=== PATIENT | male | born 1940 | race Two or more races ===

== ENCOUNTER → 2024-03-06 | Outpatient (CLI) | payer MEDICARE, BC, SELFPAY ==
[2024-03-06 09:20] LABS: Glucose Estimated Average 157 mg/dL (80-131); Hemoglobin A1C 7.1 % Hgb (4.8-6.0)
[2024-03-06 09:24] LABS: Prostate Specific Antigen < 0.10 ng/mL (0-4.00)
== END | disposition home or self-care (01) ==
LOC: COPL 08:07
PROVIDERS: PCP Internal Medicine; Referring Provider Internal Medicine; Visit Provider Internal Medicine
DX: E11.9 Type 2 diabetes mellitus without complications (principal); N40.1 Benign prostatic hyperplasia with lower urinary tract symptoms
CPT/HCPCS: 36415; 83036; 84153

== ENCOUNTER 2024-04-21 09:16 | Emergency (ER) | payer MEDICARE, BC, SELFPAY ==
--- NOTE | 2024-04-21 09:20 | EKG_ITS ---
[facility] Test Date: 2024-04-21 Pat Name: MIYA SHAIKH Department: Room: - Gender: Male Special Delivery Carrier: : 1940 Requested By: Aristides Perry (DILMA) Order Number: [id number] Reading MD: Aristides Perry (TECHNICAL SYSTEMS ARCHITECT) Measurements Intervals [place] Rate: 85 P: 50 ND: 181 QRS: 18 QRSD: 93 T: 51 QT: 392 QTc: 468 Interpretive Statements SINUS RHYTHM No previous ECG available for comparison /store/S0/[id number]/ecg/[id number].pdf
--- NOTE | 2024-04-21 09:27 | XR_ITS ---
Examination: PA chest single view TECHNIQUE: Upright PA chest single view Exam date and time: April 21, 2024 0939 hours INDICATIONS: Shortness of breath beginning one week ago. FINDINGS: Bilateral subsegmental atelectasis Normal heart size Port-A-Cath tip satisfactory position No lobar pneumonia IMPRESSION: Bilateral minor subsegmental atelectasis
--- NOTE | 2024-04-21 09:29 | PD.EDRME ---
Rapid Medical Screening Exam RME Arrival date/time: 04/21/24 09:16 83-year-old male presents to the emergency department today with son who reports patient has been having generalized shortness of breath and fatigue Chief Complaint: Shortness of Breath/Dyspnea
[2024-04-21 09:41] VITALS: BP 115/68; PULSE 101; RESP 24; TEMP 36.5; O2SAT 97; BMI 25.2
[2024-04-21 10:21] LABS: Basophils # (Auto) 0.1 Thou/mm3 (0.0-0.2); Basophils % (Auto) 1 % (0-2.5); Eosinophils % (Auto) 0 % (0-10); Hematocrit 38.8 % (41.0-53.0); Immature Granulocytes % (Auto) 1 % (0-0); Immature Granulocytes Auto 0.08 Thou/mm3 (0.00-0.00); Lymphocytes # (Auto) 1.7 Thou/mm3 (1.0-4.8); Lymphocytes % (Auto) 14 % (10-50); Mean Corpuscular HGB Conc 33.5 g/dl (31.0-37.0); Mean Corpuscular Hemoglobin 28.5 pg (25.0-35.0); Mean Corpuscular Volume 85 fL (80-100); Monocytes # (Auto) 1.1 Thou/mm3 (0.0-0.8); Monocytes % (Auto) 9 % (0-12); Neutrophils % (Auto) 75 % (37-80); Nucleated Red Blood Cell % 0 /100 WBC (0); Platelet Count 501 Thou/mm3 (140-440); RDW Standard Deviation 43.2 fL (35.1-43.9); Red Blood Count 4.56 Miln/mm3 (4.50-5.90)
[2024-04-21 10:33] LABS: Partial Thromboplastin Time 30.7 Seconds (22.0-36.0); Prothrombin Time 11.4 Seconds (9.0-12.2)
[2024-04-21 10:37] LABS: B-Type Natriuretic Peptide 179 pg/mL (0-100)
[2024-04-21 10:40] LABS: Alanine Aminotransferase 20 U/L (10-49); Albumin/Globulin Ratio 1.1 (1.2-2.2); Alkaline Phosphatase 80 U/L (46-116); Anion Gap 7 (7-16); Aspartate Amino Transferase 24 U/L (0-34); BUN/Creatinine Ratio 10 Ratio (12-20); Blood Urea Nitrogen 11 mg/dL (9-23); Calcium 9.8 mg/dL (8.3-10.6); Calcium (Corrected) 9.8 mg/dL (8.5-10.1); Carbon Dioxide 28.1 mMol/L (20.0-31.0); Chloride 99 mMol/L (98-107); Creatinine (Component) 1.1 mg/dL (0.6-1.3); Estimated Creatinine Clearance 53.2 mL/min (>60); Globulin 3.5 gm/dL (2.3-3.5); Glucose 177 mg/dL (74-106); Magnesium 1.9 mg/dL (1.6-2.6); Osmolality,Calculated 271 (275-295); Potassium 4.2 mMol/L (3.4-5.1); Sodium 134 mMol/L (136-145); Total Protein 7.5 gm/dL (5.7-8.2); Troponin I < 0.020 ng/mL (0.0-0.045); eGFR > 60 See Note
[2024-04-21 11:48] LABS: Collection Type, Urine Clean Catch
[2024-04-21 12:01] LABS: Bilirubin,Urine Negative (Negative); Blood,Urine Negative (Negative); Clarity,Urine Clear (Clear/Hazy); Color,Urine Yellow (Lt Yel-Yel); Glucose, Urine Negative (Negative); Ketones,Urine Negative (Negative); Specific Gravity,Urine 1.011 (1.001-1.035)
[2024-04-21 12:02] LABS: Leukocyte Esterase,Urine Negative (Negative); Nitrite,Urine Negative (Negative); Protein,Urine Trace (Neg - Trace); RBC,Urine 1 /hpf (0-3); Squamous Epithelial Cell,Urine < 1 /hpf (0-5); Urobilinogen,Urine Negative mg/dL (0.0-1.0); WBC,Urine 1 /hpf (0-5)
[2024-04-21 14:56] VITALS: BP 114/74; PULSE 84; RESP 18; TEMP 36.9; O2SAT 98
--- NOTE | 2024-04-21 15:12 | PD.EDSOB ---
ED SOB =RME/HPI General Chief Complaint: Shortness of Breath/Dyspnea Stated Complaint: SOB, WEAK, CAN'T FOCUS X 1 WK , COLD SHAKES Time Seen by Provider: 04/21/24 18:19 Arrival date/time: 04/21/24 09:16 RME / HPI RME / HPI Narrative: 04/21/24 09:16 83-year-old male presents to the emergency department today with son who reports patient has been having generalized shortness of breath and fatigue DR. ARSHAD MAIN ED EVALUATION: 83 year old male presents to the Emergency Department accompanied by the son with complaint of shortness of breath today. Symptoms are mild to moderate. PMHx: Localized prostate cancer in 2001 status post surgery, hypertension and diabetes. Social Hx: No tobacco, alcohol, or substance use. Related Data Home Medications ?Medication ?Instructions ?Recorded ?Confirmed gabapentin 100 mg capsule 200 mg PO BID 10/31/20 10/31/20 lisinopril 2.5 mg tablet 2.5 mg PO DAILY 10/31/20 10/31/20 metformin 500 mg tablet 500 mg PO DAILY 10/31/20 10/31/20 Previous Rx's ?Medication ?Instructions ?Recorded cefdinir 300 mg capsule 300 mg PO BID #14 caps 04/21/24 Allergies Allergy/AdvReac Type Severity Reaction Status Date / Time No Known Allergies Allergy Unverified 04/21/24 09:18 Review of Systems Review of Systems Systems Reviewed: All systems reviewed, normal except as documented Narrative Review of Systems: GEN: No fever, no chills, no weight loss EYES: No discharge, no visual changes, no pain HEENT: No ear pain, no congestion, no sore throat PULM: + shortness of breath, no cough, no congestion CV: No chest pain, no dyspnea on exertion, no palpitations GI: No nausea, no vomiting, no diarrhea, no pain, no constipation : No frequency, no urgency and no dysuria MUSC/SKEL: No joint pain, no back pain SKIN: No rash PSYCH: No hallucinations, no depression HEME/LYMPH: No easy bleeding or bruising tendencies NEURO: No weakness, no headache Past Medical History Past Medical History NEUROLOGIC: Positive Neurological Disorders and Peripheral Neuropathy; Negative Seizures CARDIAC: Positive Cardiac Disorders and Hypertension; Negative Congestive Heart Failure RESPIRATORY: Negative Chronic Obstructive Pulmonary Disease (COPD) GASTROINTESTINAL: Negative Gastrointestinal Disorders GENITOURINARY: Positive Inguinal Hernia (bilat) and Prostate Cancer; Negative Renal Disease MUSCULOSKELETAL: Positive Musculoskeletal Disorders and Arthritis ENDOCRINE: Positive Endocrine Disorders and Diabetes Mellitus Type 2; Negative Diabetes Mellitus Type 1 HEMATOLOGIC: Negative Blood Disorders OTHER HISTORY: Positive Falls, Cancer and Prostate Cancer; Negative Blood Transfusions, Anesthesia Reactions, Chemotherapy or Radiation Therapy Surgical History SURGICAL: Positive Abdominal Surgery; Negative Cardiac Surgery or Joint Replacement Social History SMOKING STATUS: Never smoker SUBSTANCE USE: does not use ALCOHOL: Never ED Exam Narrative Physical exam: GENERAL APPEARANCE: alert and oriented x 4, well-developed, well-nourished, no acute distress VITALS: All vitals were reviewed and the pulse ox is 98% on room air, which is normal according to my interpretation. HEENT: Normocephalic, atraumatic; pupils equal, round, reactive to light; EOMI; mucous membranes pink, moist; oropharynx clear NECK: Supple LUNGS: CTABL; no wheezes, no rales, no rhonchi HEART: Regular rate, regular rhythm; normal S1, S2; no murmurs ABDOMEN: non distended; normal BS; soft, no tenderness, no guarding, no rebound; no masses, no organomegaly, no hernia BACK: no CVA tenderness EXTREMITIES: atraumatic; no edema NEUROLOGIC: awake; alert and oriented x4; cranial nerves II-XII grossly intact; no focal sensory or motor deficits PSYCHIATRIC: appropriate mood and affect SKIN: warm, dry, normal color; no rashes Course Course Course Narrative: 1800: Patient was signed out to Dr. Anguiano. Past medical, surgical, social and family history reviewed. Vitals and home medications reviewed. Results and treatment plan discussed. They will assume the care of the patient at this time and will follow the patient, pending remainder of labs and final disposition. Quality Measures none Orders Category Date Time Status Bedside COVID-19 Antigen Test NOW Care 04/21/24 15:19 Completed Bedside Influenza A&B Antigen Test NOW Care 04/21/24 09:[address] Screening NOW Care 04/21/24 18:31 Completed EKG (ED ONLY) *Do not use* NOW Care 04/21/24 09:20 Completed IV [Insert IV] NOW Care 04/21/24 19:[address] abdomen pelvis w con Stat Exams 04/21/24 18:[address] angio chest Stat Exams 04/21/24 18:[address] head/brain wo con Stat Exams 04/21/24 18:31 Completed EKG (ED Only) Stat Exams 04/21/24 09:20 Draft XR chest 1V Stat Exams 04/21/24 09:27 Completed B-Type Natriuretic Peptide Stat Lab 04/21/24 10:07 Completed CBC Stat Lab 04/21/24 10:07 Completed Comprehensive Metabolic Panel Stat Lab 04/21/24 10:07 Completed D-Dimer Stat Lab 04/21/24 10:07 Completed Lactic Acid [Lactate (Lactic Acid)] Stat Lab 04/21/24 15:48 Completed Lactic Acid, 3 HR Stat Lab 04/21/24 19:19 Completed Magnesium Stat Lab 04/21/24 10:07 Completed Partial Thromboplastin Time Stat Lab 04/21/24 10:07 Completed Procalcitonin Stat Lab 04/21/24 15:48 Completed Prothrombin Time with INR Stat Lab 04/21/24 10:07 Completed Strep A Rapid Stat Lab 04/21/24 18:28 Completed Troponin I Stat Lab 04/21/24 10:07 Completed Troponin I Stat Lab 04/21/24 15:48 Completed Urinalysis Stat Lab 04/21/24 11:44 Completed Azithromycin Po [Zithromax PO] Med 04/21/24 20:52 Discontinued 500 mg PO X1 ONE Sodium Chloride 0.9% 1000 ml [Ns] 1,000 ml Med 04/21/24 16:26 Discontinued IV 999 mls/hr cefTRIAXone/D5w 1gm IV premix [Rocephin/D5w 1gm IV Med 04/21/24 20:52 Discontinued premix] 50 ml IV X1 Vital Signs Vital signs: Vital Signs Temperature 97.7 F 04/21/24 09:41 Pulse Rate 101 H 04/21/24 09:41 Respiratory Rate 24 H 04/21/24 09:41 Blood Pressure 115/68 04/21/24 09:41 Pulse Oximetry (%) 97 04/21/24 09:41 Oxygen Delivery Method Room Air 04/21/24 09:41 Shortness of Breath / Dyspnea MDM Narrative MDM Narrative:: IPrema am scribing for and in the presence of Dr. Arshad. Patient data External records reviewed:: [facility] previous records (Reviewed EGD note by Dr. Brandt dated 10/31/20) Clinical information provided by:: patient and family (son) Social determinants that could affect healthcare access:: none Patient has the following chronic illnesses:: Localized prostate cancer in 2002 status post surgery, hypertension and diabetes. How is presenting disease/condition affected by chronic disease/condition?: exacerbated by Evaluation data The following diagnostics were reviewed and interpreted by me:: lab results, radiology exam(s) and EKG tracing(s) (EKG#1: EKG at 0934 hours. Interpreted by me: sinus rhythm, rate 85, no acute ischemic changes) Lab and/or radiology exams considered but not ordered:: none Interpretation Summary: Procedure(s): XR chest 1V Accession Number(s): [id number] cc: Orlando (DILMA),Arisitdes SPRINKLER HELPER; Tobias Fernandez MD~ Examination: PA chest single view TECHNIQUE: Upright PA chest single view Exam date and time: April 21, 2024 0939 hours INDICATIONS: Shortness of breath beginning one week ago. FINDINGS: Bilateral subsegmental atelectasis Normal heart size Port-A-Cath tip satisfactory position No lobar pneumonia IMPRESSION: Bilateral minor subsegmental atelectasis Dictated By: Tobias Fernandez MD Medications / Prescriptions Medications or Prescriptions considered but not ordered:: none Medication administrations:: Medication Administration History Discontinued Medications Azithromycin (Azithromycin 250 Mg Tablet) 500 mg PO X1 ONE Stop: 04/21/24 20:53 Last Admin: 04/21/24 20:59 Dose: 500 mg Documented By: CANELO Sodium Chloride (Ns) 1,000 mls @ 999 mls/hr IV .Q1H1M ONE Stop: 04/21/24 17:26 Last Infusion: 04/21/24 18:21 Dose: Infused Documented By: Admin: 04/21/24 17:17 Dose: 999 mls/hr Documented By: DARÍO Ceftriaxone Sodium/Dextrose (Rocephin/D5w 1gm Iv Premix) 50 mls @ 100 mls/hr IV X1 ONE Stop: 04/21/24 21:21 Last Infusion: 04/21/24 21:35 Dose: Infused Documented By: Admin: 04/21/24 20:59 Dose: 100 mls/hr Documented By: CANELO see above if any Consultations Consultation(s) initiated? (list below): No Diagnosis Shortness of Breath Differential Diagnosis: acute exacerbation of chronic obstructive airways disease, congestive heart failure, community acquired pneumonia, asthma with exacerbation and pulmonary embolism Most likely diagnosis given after review of the tests above:: No official diagnoses at this time, still pending diagnostic tests. Patient signout to the second shift supervisor provider. Admission Indicated Admission indicated?: not indicated Explain why admission is indicated or not indicated:: No final disposition plan at this time, still pending diagnostic tests. Patient signout to the second shift supervisor provider. Admission Request Was there a request for admission?: No Disposition Plan Disposition Plan: other (specify) (Patient signout to the second shift supervisor provider. ) Discharge Plan Plan Patient Disposition: HOME (Self Care) Prescriptions/Referrals Prescriptions/Med Rec: New cefdinir 300 mg capsule 300 mg PO BID Qty: 14 0RF No Action metformin 500 mg tablet 500 mg PO DAILY Patient Comments: TAKE 1 TABLET BY MOUTH EVERY DAY gabapentin 100 mg capsule 200 mg PO BID Patient Comments: TAKE 2 CAPSULES BY MOUTH TWICE A DAY lisinopril 2.5 mg tablet 2.5 mg PO DAILY Patient Comments: TAKE 1 TABLET BY MOUTH EVERY DAY Referrals: Anand Haddad MD [Primary Care Provider] - In 1 week Problem List Clinical Impression: Community acquired pneumonia Patient/Caregiver Discharge Instructions Discharge Activity: activity as tolerated Education Materials: ED Pneumonia (Adult) Additional Instructions: Discharge instructions from Dr. Anguiano: 1. After extensive evaluation, there is no life-threatening condition.? Such as stroke or brain tumor or heart attack or pulmonary embolism (blood clots in your lungs) or pneumothorax (collapsed lung). 2. But you have pneumonia. 3. Take Zithromax and cefdinir to kill the germs causing the pneumonia. --No physical exertion for 3 days to help rest the lungs. ?No smoking or exposure to smoking or pets or dust or cold air. --Prednisone to help decrease the swelling in the airways. 4. See a private doctor on 04/24/2024 for recheck and further care. Ask to review all test results and official radiology reports, to make sure you receive all necessary follow-ups and monitoring. To make sure there is no serious underlying heart condition, ask to help you get more tests for your heart that cannot be done here in the ER.? Such as Holter Monitor (cardiac monitoring at home from a day to even a month), heart stress test (on treadmill or with medication), echocardiogram (imaging of your heart structures), heart catherization (checking for blockages in your heart arteries), and a referral to see a Telecommunications Field Technician. 5. Seek immediate medical care with worsening or with any concerns.?? Print Language: [place] Islander Stand Alone Forms: Radha Award Info., Patient Portal Info Letter
[2024-04-21 16:05] LABS: Lactate (Lactic Acid) 2.7 mMol/L (0.4-2.0)
[2024-04-21 16:54] LABS: Procalcitonin 0.08 ng/ml (0.0-0.49); Troponin I < 0.020 ng/mL (0.0-0.045)
[2024-04-21] MEDS: SODIUM CHLORIDE 0.9% 1000 ML 1,000 ML 999 ML IV (17:17)
[2024-04-21 17:22] LABS: D-Dimer 2330 ng/mL (<600)
--- NOTE | 2024-04-21 18:01 | PD.EDADDENDU ---
Emergency Room Addendum <Jory Sullivan - Last Filed: 04/21/24 20:57> Addendum Narrative: I took over the care from Dr. Arshad at 6 PM on 04/21/2024, see her notes for complete H&P and ED course. Please refer to the emergency department record for history and examination from initial visit. I reviewed all diagnostic test results. My interpretation of the EKG is My interpretation of the chest x-ray is My review of the CT report is Blood tests and urine tests At this point, diagnoses include Treatment here included Significant improvement Based on my best medical judgment, made decision no further evaluation or treatment indicated at this time. Patient understands and agrees to the discharge instructions customized and printed, see below. Discharge instructions from Dr. Anguiano: 1. After extensive evaluation, there is no life-threatening condition.? Such as stroke or brain tumor or heart attack or pulmonary embolism (blood clots in your lungs) or pneumothorax (collapsed lung). 2. But you have pneumonia. 3. Take Zithromax and cefdinir to kill the germs causing the pneumonia. --No physical exertion for 3 days to help rest the lungs. ?No smoking or exposure to smoking or pets or dust or cold air. --Prednisone to help decrease the swelling in the airways. 4. See a private doctor on 04/24/2024 for recheck and further care. Ask to review all test results and official radiology reports, to make sure you receive all necessary follow-ups and monitoring. To make sure there is no serious underlying heart condition, ask to help you get more tests for your heart that cannot be done here in the ER.? Such as Holter Monitor (cardiac monitoring at home from a day to even a month), heart stress test (on treadmill or with medication), echocardiogram (imaging of your heart structures), heart catherization (checking for blockages in your heart arteries), and a referral to see a Partridge Farmer. 5. Seek immediate medical care with worsening or with any concerns.?? <Carlos Anguiano MD - Last Filed: 04/21/24 20:57> Addendum Narrative: I took over the care from Dr. Arshad at 6 PM on 04/21/2024, see her notes for complete H&P and ED course. I reviewed all diagnostic test results. Remarkable for pneumonia. At this point, diagnoses include pneumonia. Treatment here included Rocephin and Zithromax. Recommended a trial of outpatient treatment. Based on my best medical judgment, made decision no further evaluation or treatment indicated at this time. Patient understands and agrees to the discharge instructions customized and printed, see below. Discharge instructions from Dr. Anguiano: 1. After extensive evaluation, there is no life-threatening condition.? Such as stroke or brain tumor or heart attack or pulmonary embolism (blood clots in your lungs) or pneumothorax (collapsed lung). 2. But you have pneumonia. 3. Take Zithromax and cefdinir to kill the germs causing the pneumonia. --No physical exertion for 3 days to help rest the lungs. ?No smoking or exposure to smoking or pets or dust or cold air. --Prednisone to help decrease the swelling in the airways. 4. See a private doctor on 04/24/2024 for recheck and further care. Ask to review all test results and official radiology reports, to make sure you receive all necessary follow-ups and monitoring. To make sure there is no serious underlying heart condition, ask to help you get more tests for your heart that cannot be done here in the ER.? Such as Holter Monitor (cardiac monitoring at home from a day to even a month), heart stress test (on treadmill or with medication), echocardiogram (imaging of your heart structures), heart catherization (checking for blockages in your heart arteries), and a referral to see a Partridge Farmer. 5. Seek immediate medical care with worsening or with any concerns.??
--- NOTE | 2024-04-21 18:31 | XR_ITS ---
Examination: CT abdomen with intravenous contrast CT pelvis with intravenous contrast 2-D coronal reconstructions 2-D sagittal reconstructions Date and time of exam:January 19, 2025 at 1933 hrs. Indications: Abdominal pain beginning one week ago Comparison: August 04, 2020. CTDI: vol (mGy) 17.4 DLP: (mGycm) 1054 Technique: Multiple axial sections of the abdomen and pelvis have been obtained. 64 slice high-resolution scanner used. 3 mm axial sections have been obtained, post intravenous injection 100 cc Isovue-370 2-D sagittal, coronal reconstructions obtained. Low dose protocols were performed. One or more of the following dose reduction techniques were used; automated exposure control, adjustment of the mA and/or KV according to patient size, use of iterative reconstruction technique. Findings: 11 mm liver cyst No gallstones Smaller splenic lesion on this study, 27 mm compared to 12 cm Weight 27/09/2020, probably result splenic infarct No pancreatic or adrenal mass Minimal perinephric stranding No hydronephrosis Normal appendix Abdominal aortic calcification no aneurysmal dilatation Urinary bladder wall thickening anteriorly up to 7 mm Prominent osteopenia with advanced degenerative disc disease L2-L3, L3-L4, L4-L5 Impression: Smaller splenic lesion compared to the prior CT exam, probably result splenic infarct Minimal perinephric stranding Normal appendix No bowel obstruction or diverticulitis Irregular urinary bladder wall thickening anteriorly up to 7 mm, differential would include cystitis, early bladder carcinoma not excluded, clinical correlation advised
--- NOTE | 2024-04-21 18:31 | XR_ITS ---
Examination: CT brain head without contrast. 2-D sagittal coronal reconstructions Date and time of exam:November 19, 2024 1930 hrs. Indications: Onset altered mental status today CTDI: vol (mGy):55.7 DLP: (mGycm):1180 Technique: Multiple CT axial sections of the brain have been obtained, 5 mm slice thickness. Contrast has not been administered. 2-D sagittal, coronal reconstructions have been obtained Low dose protocols were performed. One or more of the following dose reduction techniques were used; automated exposure control, adjustment of the mA and/or KV according to patient size, use of iterative reconstruction technique. Findings: No significant ventricular enlargement. Intra-axial or extra-axial hemorrhage density is not seen. No mass effect or midline shift Basal cisterns are not remarkable. Fourth ventricle is midline. Cranial vault intact. Impression: Negative for acute hemorrhage, mass effect or midline shift Clinical correlation advised and follow-up accordingly
--- NOTE | 2024-04-21 18:31 | XR_ITS ---
Examination: CTA chest with intravenous contrast 2-D reconstructions 3-D reconstructions, vascular Date and time of exam: April 21, 2022 1933 hrs. Indications: Shortness of breath chest pain beginning one week ago, with elevated the dimer CTDI: vol (mGy) 53.28 DLP: (mGycm) 1028 Technique: Multiple axial sections of the thorax have been obtained. 3 mm slice thickness, from below the hemidiaphragms to above the apices of the lungs. Mediastinal and lung density settings have been obtained. 2-D sagittal and coronal reconstructions. 3-D angiographic renderings, 3-D volume renderings, 3D post processing, vascular maximum intensity projections obtained. Contrast administered is 100 cc Isovue-370. Low dose protocols were performed. One or more of the following dose reduction techniques were used; automated exposure control, adjustment of the mA and/or KV according to patient size, use of iterative reconstruction technique. 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
[2024-04-21 18:55] VITALS: BP 113/63; PULSE 85; RESP 22; TEMP 36.8; O2SAT 98
[2024-04-21 19:02] LABS: Reflex Lactate? Y
[2024-04-21 19:06] VITALS: BP 136/70; PULSE 72; RESP 18; O2SAT 99
[2024-04-21 19:19] LABS: Strep A Rapid Negative (Negative)
[2024-04-21 19:28] LABS: Lactic Acid, 3 HR 2.2 mMol/L (0.4-2.0)
[2024-04-21] MEDS: cefTRIAXone/D5w 1gm IV premix 50 ML IV (20:59)
[2024-04-21] MEDS: AZITHROMYCIN 250 MG TABLET 500 MG PO (20:59)
[2024-04-21 21:02] VITALS: BP 124/66; PULSE 77; RESP 18; O2SAT 98
== END 2024-04-21 21:37 | disposition home or self-care (01) ==
PROVIDERS: Emergency Medicine; Nurse Practitioner Primary Care; Emergency Provider Emergency Medicine; PCP Internal Medicine
DX: J18.9 Pneumonia, unspecified organism (principal); J98.11 Atelectasis; I10 Essential (primary) hypertension; R41.82 Altered mental status, unspecified; R10.9 Unspecified abdominal pain
CPT/HCPCS: 36415; 70450; 71045; 71275; 74177; 80053; 81001; 83605; 83735; 83880; 84145; 84484; 85025; 85379; 85610; 85730; 87400; 87651; 87811; 93005; 96360; 96365; 99285; A4649; J0696; J7030; Q9967; A9270

== ENCOUNTER 2024-06-09 08:45 | Day surgery (SDC) | payer MEDICARE, BC, SELFPAY ==
[2024-06-08 11:58] VITALS: BMI 26.5
[2024-06-08 12:54] LABS: Basophils # (Auto) 0.1 Thou/mm3 (0.0-0.2); Basophils % (Auto) 1 % (0-2.5); Eosinophils # (Auto) 0.3 Thou/mm3 (0.0-0.5); Eosinophils % (Auto) 3 % (0-10); Hematocrit 42.1 % (41.0-53.0); Hemoglobin 13.7 g/dL (13.5-16.0); Immature Granulocytes % (Auto) 1 % (0-0); Immature Granulocytes Auto 0.07 Thou/mm3 (0.00-0.00); Lymphocytes # (Auto) 3.3 Thou/mm3 (1.0-4.8); Lymphocytes % (Auto) 31 % (10-50); Mean Corpuscular HGB Conc 32.5 g/dl (31.0-37.0); Mean Corpuscular Volume 86 fL (80-100); Monocytes # (Auto) 0.9 Thou/mm3 (0.0-0.8); Monocytes % (Auto) 9 % (0-12); Neutrophils # (Auto) 5.9 Thou/mm3 (1.8-7.7); Neutrophils % (Auto) 56 % (37-80); Nucleated Red Blood Cell % 0 /100 WBC (0); Platelet Count 648 Thou/mm3 (140-440); RDW Standard Deviation 53.9 fL (35.1-43.9); Red Blood Count 4.89 Miln/mm3 (4.50-5.90); White Blood Count 10.6 Thou/mm3 (3.8-10.6)
[2024-06-08 13:05] LABS: Alanine Aminotransferase 16 U/L (10-49); Albumin, Serum 4.4 gm/dL (3.4-4.8); Albumin/Globulin Ratio 1.2 (1.2-2.2); Alkaline Phosphatase 127 U/L (46-116); Anion Gap 11 (7-16); Aspartate Amino Transferase 28 U/L (0-34); BUN/Creatinine Ratio 10 Ratio (12-20); Bilirubin,Total 0.5 mg/dL (0.3-1.2); Blood Urea Nitrogen 10 mg/dL (9-23); Calcium 10.4 mg/dL (8.3-10.6); Calcium (Corrected) 10.4 mg/dL (8.5-10.1); Carbon Dioxide 28.5 mMol/L (20.0-31.0); Chloride 99 mMol/L (98-107); Estimated Creatinine Clearance 58.6 mL/min (>60); Globulin 3.7 gm/dL (2.3-3.5); Glucose 159 mg/dL (74-106); Osmolality,Calculated 277 (275-295); Potassium 4.1 mMol/L (3.4-5.1); Sodium 138 mMol/L (136-145); Total Protein 8.1 gm/dL (5.7-8.2); eGFR > 60 See Note
[2024-06-08 13:09] LABS: Partial Thromboplastin Time 26.8 Seconds (22.0-36.0); Prothrombin Time 10.9 Seconds (9.0-12.2)
--- NOTE | 2024-06-08 14:12 | SUR.PREOP ---
Pt stated was taking meds for high blood pressure and diabetes but run our and Dr did not send him any refills. pt's son stated his dad takes no meds. Pt's son notified to bring pt tomorrow at 0900 for surgery.
[2024-06-09] VITALS (8 sets, daily range): BP systolic 133–141; BP diastolic 63–76; PULSE 65–84; RESP 13–20; TEMP 36.3; O2SAT 95–98; BMI 27.8
--- NOTE | 2024-06-09 12:18 | SUR.PHASEII ---
1218 Patient meets discharge criteria from recovery, awake and alert, breathing unlabored, vital signs table, denies pain, dressing intact; no bleeding noted, drinking 7up; tolerating well, denies nausea, patient able to dress himself into his clothing, discharge instructions given to patient and patients son with teach-back approach, both receptive of instructions, patients son signed discharge instructions. Patient given all his belongings prior to discharge, transported via wheelchair and left in a private vehicle.
--- NOTE | 2024-06-09 12:35 | PD.SUROPNT ---
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 It was very fast-growing and showed some signs of inflammation over the edges Procedure Description After the patient was brought to the operating room LMA anesthesia was given by the anesthesiologist. Then his left forearm was washed with ChloraPrep solution and draped in a sterile manner. Timeout was performed. He received 2 g of Ancef because of inflammation seen over the edges of this growing tumor. Then I made an a circumferential l incision after injecting half percent Marcaine with epinephrine all around the lesion. Frozen section was obtained which revealed this to be squamous cell carcinoma. Since the diagnosis confirmed I asked for margin clearance and the pathologist felt that the margin is clear but it was close. Because of cancer I wanted to give additional margin on therefore I removed another circumferential incision to get additional margin at least about 2 to 3 mm so that we could obtain a 5 mm margin for squamous cell carcinoma. Bleeding points were controlled with cautery and wound was dressed with wet-to-dry gauze and Barbara roll. Patient tolerated procedure well. Anesthesia other (General LMA) Pathology / specimen Other (Skin lesion from the left forearm, #2 additional margin all around the cancer) Estimated Blood Loss 30 Surgeon Olga Bazzi MD Surgical Staff Operation Date: 06/09/24 11:00 Case Staff Anesthesiologist: Tereso Fierro RN First Assistant: Irish Odonnell
--- NOTE | 2024-06-09 12:54 | SUR.PHASEI ---
pt arrived to PACU via gurney with oral airway present, breathing unlabored, dressing to left forearm clean, dry, and intact, report from Rocael DANIEL and Dr Fierro
--- NOTE | 2024-06-09 12:59 | SUR.PHASEII ---
Report to Karrie Dupree RN
--- NOTE | 2024-06-09 12:59 | SUR.PHASEII ---
1259 Report received from Karrie Pope RN, patient awake and alert, sitting up in bed talking with staff, breathing unlabored, vital signs stable, denies pain, dressing intact; no bleeding noted, drinking fluids; denies nausea
== END 2024-06-09 13:18 | disposition home or self-care (01) ==
PROVIDERS: PCP Internal Medicine; Referring Provider Surgery; Visit Provider Surgery
PROC: (CPT 11606; principal; 2024-06-09 11:00)
DX: C76.42 Malignant neoplasm of left upper limb (principal); L57.8 Other skin changes due to chronic exposure to nonionizing radiation; E11.9 Type 2 diabetes mellitus without complications; Z85.72 Personal history of non-Hodgkin lymphomas
CPT/HCPCS: 11606; 36415; 80053; 85025; 85610; 85730; A4217; A4649; J0690; J1100; J2405; J2704; J3010

== ENCOUNTER 2024-06-23 07:00 | Day surgery (SDC) | payer MEDICARE, BC, SELFPAY ==
[2024-06-22 08:00] VITALS: BMI 29.2
[2024-06-22 08:04] VITALS: BMI 29.2
[2024-06-22 09:18] LABS: Basophils # (Auto) 0.1 Thou/mm3 (0.0-0.2); Basophils % (Auto) 1 % (0-2.5); Eosinophils # (Auto) 0.4 Thou/mm3 (0.0-0.5); Eosinophils % (Auto) 4 % (0-10); Hematocrit 43.9 % (41.0-53.0); Hemoglobin 13.9 g/dL (13.5-16.0); Immature Granulocytes % (Auto) 0 % (0-0); Immature Granulocytes Auto 0.04 Thou/mm3 (0.00-0.00); Lymphocytes % (Auto) 29 % (10-50); Mean Corpuscular HGB Conc 31.7 g/dl (31.0-37.0); Mean Corpuscular Hemoglobin 28.4 pg (25.0-35.0); Mean Corpuscular Volume 90 fL (80-100); Monocytes # (Auto) 0.8 Thou/mm3 (0.0-0.8); Monocytes % (Auto) 8 % (0-12); Neutrophils # (Auto) 5.9 Thou/mm3 (1.8-7.7); Neutrophils % (Auto) 58 % (37-80); Nucleated Red Blood Cell % 0 /100 WBC (0); Platelet Count 551 Thou/mm3 (140-440); RDW Standard Deviation 55.6 fL (35.1-43.9); White Blood Count 10.2 Thou/mm3 (3.8-10.6)
[2024-06-22 09:43] LABS: Partial Thromboplastin Time 26.5 Seconds (22.0-36.0); Prothrombin Time 10.6 Seconds (9.0-12.2)
[2024-06-22 09:44] LABS: Alanine Aminotransferase 13 U/L (10-49); Albumin, Serum 4.2 gm/dL (3.4-4.8); Albumin/Globulin Ratio 1.3 (1.2-2.2); Alkaline Phosphatase 114 U/L (46-116); Anion Gap 9 (7-16); Aspartate Amino Transferase 25 U/L (0-34); BUN/Creatinine Ratio 9 Ratio (12-20); Bilirubin,Total 0.5 mg/dL (0.3-1.2); Blood Urea Nitrogen 10 mg/dL (9-23); Calcium 9.2 mg/dL (8.3-10.6); Calcium (Corrected) 9.2 mg/dL (8.5-10.1); Carbon Dioxide 27.2 mMol/L (20.0-31.0); Chloride 106 mMol/L (98-107); Creatinine (Component) 1.1 mg/dL (0.6-1.3); Estimated Creatinine Clearance 53.7 mL/min (>60); Globulin 3.2 gm/dL (2.3-3.5); Glucose 220 mg/dL (74-106); Osmolality,Calculated 289 (275-295); Potassium 4.1 mMol/L (3.4-5.1); Sodium 142 mMol/L (136-145); Total Protein 7.4 gm/dL (5.7-8.2); eGFR > 60 See Note
--- NOTE | 2024-06-22 13:43 | SUR.PREOP ---
Pt's son notified to bring pt at 0700 tomorrow for surgery.
--- NOTE | 2024-06-22 22:08 | ESHP_ITS ---
RE: MIYA SHAIKH : 1940 DATE OF ADMISSION: 06/23/2024 DATE OF SURGERY: 06/23/2024 HISTORY OF PRESENT ILLNESS: This patient is an 83-year-old male who is scheduled for skin graft to the left arm open wound. 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 The patient underwent wide excision of the squamous cell carcinoma about 2 weeks ago. At that time, the patient had some inflammation over the edges, and therefore, no skin graft was done. The patient was given some antibiotics and waited for the granulation tissue to build in before attempting split-thickness skin graft. The patient has done reasonably well during the followup and now the left forearm has open wound with granulation tissue. PAST MEDICAL HISTORY: The patient's past medical history revealed history of lymphoma and diabetes. The patient has been diagnosed with lymphoma in the past and has been treated in [place] at [facility]. The patient has had a post-cath on the right side. PAST SURGICAL HISTORY: Past surgeries consisted of port placement and hernia repair. PHYSICAL EXAMINATION: GENERAL: Examination revealed a well-built, well- nourished male who is 5 feet 11 inches tall and weighing 183 pounds with BMI of 25.5. VITAL SIGNS: Pulse rate was 84, temperature was 98, BP was 116/72. HEENT: Examination of the head is normal. Eyes are normal. Ears, nose, and throat are normal. NECK: Normal. 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 Apparently, it has not been utilized. Examination of the breath sounds are normal. HEART: Examination showed normal sinus rhythm. ABDOMEN: Unremarkable. EXTREMITIES: Examination of the extremities revealed the patient had a raised lesion on the flexor aspect of the left forearm, which had been excised wide. Now, the diameter of the wound is 5 cm and it is showing healthy granulation tissue. There is no inflammation surrounding this mass. There is no exudate in the wound. NEUROLOGICAL: Normal. SKIN: Normal. BACK: Normal. IMPRESSION: 1. 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 2. Diabetes. 3. History of lymphoma. COURSE OF ACTION: I advised the patient to undergo skin graft, which will be split-thickness skin graft taken from the left thigh. I told him about the risks of the skin graft including hematoma and possible wound infection and even loss of the graft, which may have to be redone. Sometimes, the donor site also does not heal and requires secondary healing. The patient is aware of it and is willing to go through the procedure, which is planned under general anesthesia on 06/23/2024. DT: 21:03:44 TT: 21:48:00 Ref: [id number] - TID: [id number] MTDD
[2024-06-23] VITALS (7 sets, daily range): BP systolic 142–165; BP diastolic 63–83; PULSE 63–78; RESP 13–18; TEMP 36.4–36.7; O2SAT 97–100; BMI 26.2
[2024-06-23] MEDS: RINGERS LACTATED 1000 ML 1,000 ML 20 ML IV (07:36)
--- NOTE | 2024-06-23 10:34 | SUR.PHASEI ---
1034 Patient arrived to recovery resting comfortably in [facility], drowsy and talking with staff, on oxygen 15L via oxy mask, breathing unlabored, vital signs stable, denies pain, dressing intact to left arm; gauze with adaptic, sutured in place, gauze, kerlix roll and silk tape, to left thigh; adaptic, gauze, medipore tape, no bleeding noted, report received from Brenda DANIEL and Dr. Fierro/Shakir SRNA
--- NOTE | 2024-06-23 10:46 | PD.SUROPNT ---
Date of Procedure 06/23/24 Pre Op Diagnosis Open wound left forearm Post Op Diagnosis Same Procedure Split-thickness skin graft to the left forearm from the left thigh Findings Patient had open wound following excision of a squamous cell carcinoma 2 weeks ago. The wound measured 5 cm in diameter Procedure Description After the patient was brought to the operating room LMA anesthesia was given. Then left thigh and the left upper extremity were prepped with Betadine solution and draped in a sterile manner. Patient received 1 g of Ancef. Timeout was performed. Then I used mineral oil over the left thigh at the donor site and chose 14 x 1000 inch of split-thickness skin graft Adan removed it using a dermatome. This was then placed over the recipient site over the dorsal aspect of the left forearm. I used 5-0 nylon sutures with P3 needle to attach the graft to the edges on the bolster dressing was given with Adaptic and 2 by twos to hold the graft in place. Dressing was then applied with compression dressing over the left thigh and Kerlix roll over the left upper extremity. Patient tolerated procedure well Anesthesia other Pathology / specimen None Estimated Blood Loss 10 Surgeon Olga Bazzi MD Surgical Staff Operation Date: 06/23/24 09:15 Case Staff Anesthesiologist: Tereso Fierro RN First Assistant: Jo Ann Constantino
--- NOTE | 2024-06-23 11:21 | SUR.PHASEII ---
1121 Report given to Hilary Zavala RN
--- NOTE | 2024-06-23 11:33 | SUR.PHASEII ---
1121 patient is awake, alert, breathing unlabored, s/p skin graft to left arm from left thight, patient sitting in wheel chair dressed in own clother ready to be discharged home, report received from Karrie Kc RN [id number] patient is awake, alert, breathing unlabored, discharge instructions given to patient and son, patient discharged home in wheelchair with all belongings.
== END 2024-06-23 11:28 | disposition home or self-care (01) ==
PROVIDERS: PCP Internal Medicine; Referring Provider Surgery; Visit Provider Surgery
PROC: (CPT 15100; principal; 2024-06-23 09:00)
DX: Z48.3 Aftercare following surgery for neoplasm (principal); E11.9 Type 2 diabetes mellitus without complications; Z85.828 Personal history of other malignant neoplasm of skin; Z85.72 Personal history of non-Hodgkin lymphomas; Z52.11 Skin donor, autologous
CPT/HCPCS: 15100; 36415; 80053; 85025; 85610; 85730; A4217; A4649; C1768; J0690; J1100; J2371; J2405; J2704; J3010; J3490; J7120; A9270; J1596

== ENCOUNTER → 2024-09-14 | Outpatient (CLI) | payer MEDICARE, BC, SELFPAY ==
[2024-09-14 11:06] LABS: Glucose Estimated Average 163 mg/dL (80-131); Hemoglobin A1C 7.3 % Hgb (4.8-6.0)
== END | disposition home or self-care (01) ==
LOC: COPL 08:49
PROVIDERS: PCP Internal Medicine; Referring Provider Internal Medicine; Visit Provider Internal Medicine
DX: E11.9 Type 2 diabetes mellitus without complications (principal)
CPT/HCPCS: 36415; 83036

== ENCOUNTER → 2024-11-02 | Outpatient (CLI) | payer MEDICARE, BC, SELFPAY ==
--- NOTE | 2024-11-02 09:50 | XR_ITS ---
Examination: PA lateral chest 2 views TECHNIQUE: Upright PA and lateral chest 2 views Date and time: November 02, 2024, 1005 hours INDICATIONS: Shortness of breath difficulty breathing beginning 2 months ago. FINDINGS: Normal heart size Atelectasis in the lower lung zones No lobar pneumonia or pulmonary edema. Right internal jugular Port-A-Cath tip satisfactory position IMPRESSION: Minor atelectasis versus scarring at the lung bases.
[2024-11-02 10:28] LABS: Basophils # (Auto) 0.1 Thou/mm3 (0.0-0.2); Basophils % (Auto) 1 % (0-2.5); Eosinophils # (Auto) 0.3 Thou/mm3 (0.0-0.5); Eosinophils % (Auto) 3 % (0-10); Hematocrit 46.5 % (41.0-53.0); Hemoglobin 15.5 g/dL (13.5-16.0); Immature Granulocytes Auto 0.03 Thou/mm3 (0.00-0.00); Lymphocytes # (Auto) 3.0 Thou/mm3 (1.0-4.8); Lymphocytes % (Auto) 32 % (10-50); Mean Corpuscular HGB Conc 33.3 g/dl (31.0-37.0); Mean Corpuscular Hemoglobin 28.7 pg (25.0-35.0); Mean Corpuscular Volume 86 fL (80-100); Monocytes # (Auto) 0.7 Thou/mm3 (0.0-0.8); Monocytes % (Auto) 8 % (0-12); Neutrophils # (Auto) 5.3 Thou/mm3 (1.8-7.7); Neutrophils % (Auto) 57 % (37-80); Nucleated Red Blood Cell # 0.00 Thou/mm3 (0.00-0.00); Nucleated Red Blood Cell % 0 /100 WBC (0); Platelet Count 477 Thou/mm3 (140-440); RDW Standard Deviation 45.8 fL (35.1-43.9); Red Blood Count 5.40 Miln/mm3 (4.50-5.90); White Blood Count 9.4 Thou/mm3 (3.8-10.6)
[2024-11-02 10:57] LABS: Vitamin D 25 Hydroxy Total 31.2 ng/mL (7.3-40.2)
[2024-11-02 11:00] LABS: Alanine Aminotransferase 17 U/L (10-49); Albumin, Serum 4.3 gm/dL (3.4-4.8); Albumin/Globulin Ratio 1.2 (1.2-2.2); Alkaline Phosphatase 91 U/L (46-116); Anion Gap 11 (7-16); Aspartate Amino Transferase 28 U/L (0-34); BUN/Creatinine Ratio 9 Ratio (12-20); Bilirubin,Total 0.6 mg/dL (0.3-1.2); Blood Urea Nitrogen 12 mg/dL (9-23); Calcium 10.1 mg/dL (8.3-10.6); Calcium (Corrected) 10.1 mg/dL (8.5-10.1); Carbon Dioxide 27.6 mMol/L (20.0-31.0); Cardiac Risk Estimate 5.2 RATIO (4.0-6.7); Chloride 99 mMol/L (98-107); Cholesterol 187 mg/dL (132-200); Creatinine (Component) 1.3 mg/dL (0.6-1.3); Free T4 (Free Thyroxine) 1.26 ng/dL (0.89-1.76); Globulin 3.5 gm/dL (2.3-3.5); Glucose 152 mg/dL (74-106); HDL Cholesterol 36 mg/dL (40-60); LDL Cholesterol,Calculated 106 mg/dL (0-130); Osmolality,Calculated 278 (275-295); Potassium 4.5 mMol/L (3.4-5.1); Sodium 138 mMol/L (136-145); Thyroid Stimulating Hormone 2.60 uIU/mL (0.55-4.78); Total Protein 7.8 gm/dL (5.7-8.2); Triglycerides 227 mg/dL (30-150); eGFR 54 See Note
[2024-11-02 11:10] LABS: Glucose Estimated Average 174 mg/dL (80-131); Hemoglobin A1C 7.7 % Hgb (4.8-6.0)
[2024-11-02 11:24] LABS: B-Type Natriuretic Peptide 30 pg/mL (0-100)
== END | disposition home or self-care (01) ==
PROVIDERS: PCP Internal Medicine; Referring Provider Internal Medicine; Visit Provider Radiology Diagnostic Radiology
DX: R06.00 Dyspnea, unspecified (principal); E11.9 Type 2 diabetes mellitus without complications; E55.9 Vitamin D deficiency, unspecified
CPT/HCPCS: 36415; 71046; 80053; 80061; 82306; 83036; 83880; 84439; 84443; 85025

== ENCOUNTER → 2025-02-08 | Outpatient (CLI) | payer MEDICARE, BC, SELFPAY ==
[2025-02-08 11:06] LABS: Glucose Estimated Average 169 mg/dL (80-131); Hemoglobin A1C 7.5 % Hgb (4.8-6.0)
== END | disposition home or self-care (01) ==
PROVIDERS: PCP Internal Medicine; Referring Provider Internal Medicine; Visit Provider Internal Medicine
DX: E11.9 Type 2 diabetes mellitus without complications (principal)
CPT/HCPCS: 36415; 83036